=== PATIENT | female | born 1965 | race Caucasian/White ===

== ENCOUNTER → 2024-11-26 12:52 | Outpatient (REF) | payer BC, SELFPAY | LOC: HWWDC 12:52 | PROVIDERS: ATTENDING PHYSICIAN Obstetrics & Gynecology Gynecology; FAMILY PHYSICIAN Family Medicine | DX: R10.2 Pelvic and perineal pain (principal); Z78.0 Asymptomatic menopausal state | CPT/HCPCS: 76830; 76856 ==

== ENCOUNTER → 2025-01-14 10:48 | Outpatient (REF) | payer BC, SELFPAY | LOC: WDC 10:48 | PROVIDERS: ATTENDING PHYSICIAN Obstetrics & Gynecology Gynecology; FAMILY PHYSICIAN Family Medicine | DX: R92.8 Other abnormal and inconclusive findings on diagnostic imaging of breast (principal) | CPT/HCPCS: 77061; 77065 ==

== ENCOUNTER → 2025-01-21 06:27 | Outpatient (REF) | payer BC, SELFPAY ==
--- NOTE | 2025-01-21 09:44 | OID.BR.INTR ---
[facility] Breast Navigator - Initial
- -
Date of Contact: 01/21/25
Met with patient. Patient given written information on navigator service available at [facility]. Will follow up as needed per protocol.
== END ==
LOC: WDC 06:27
PROVIDERS: ATTENDING PHYSICIAN Obstetrics & Gynecology Gynecology
DX: R92.1 Mammographic calcification found on diagnostic imaging of breast (principal)
CPT/HCPCS: 88305; 19081; 76098; 88360; A4648